=== PATIENT | male | born 1945 | race Caucasian/White ===

== ENCOUNTER 2018-10-26 07:08 | Inpatient (IN) ==
[2018-10-26 08:52] LABS: BASO# 0.06 X1000 (0.0-0.2); BASO% 0.9 % (0.0-0.8); EOS# 0.22 X1000 (0.0-0.7); EOS% 3.4 % (0.0-10.0); HEMATOCRIT 45.5 % (42.0-52.0); HEMOGLOBIN 14.5 g/dL (14.0-18.0); LYMPH# 1.41 X1000 (1.2-3.4); LYMPH% 21.9 % (20.5-51.1); MCH 26.6 PG (27-31); MCHC 31.9 g/dL (33-37); MCV 83.5 FL (81-99); MONO# 0.67 X1000 (0.11-0.59); MONO% 10.4 % (1.7-9.3); MPV 9.8 FL (7.4-10.4); NEUT# 4.08 X1000 (1.4-6.5); NEUT% 63.4 % (42.2-75.2); PLT 261 X1000 (130-400); RBC 5.45 XMIL (4.7-6.1); RDW 15.9 % (11.5-14.5); WBC 6.44 X1000 (4.8-10.8)
[2018-10-26 09:00] LABS: INR 1.01; PROTIME 14.2 Seconds (11.0-16.0)
[2018-10-26 09:13] LABS: AGAP 10; ALB/GLOB RATIO 1.4; ALBUMIN 4.2 g/dL (3.5-5.0); ALKALINE PHOSPHATASE 67 U/L (32-122); BUN 22 mg/dL (8-22); CALCIUM 9.2 mg/dL (8.8-10.2); CHLORIDE 106 mmol/L (98-107); COSMO 287; ESTIMATED GFR > 60; GLUCOSE 102 mg/dL (70-104); GOT 23 U/L (10-34); GPT 56 U/L (10-44); POTASSIUM 4.6 mmol/L (3.5-5.1); SODIUM 142 mmol/L (136-145); TCO2 26 mmol/L (25-35); TOTAL BILIRUBIN 0.84 mg/dL (0.20-1.00); TOTAL PROTEIN 7.2 g/dL (6.3-8.3)
--- NOTE | 2018-10-26 09:40 | PROVIDER DOCUMENTATION ---
HPI-General Adult - General Chief Complaint: Rectal Bleeding Stated Complaint: RECTAL BLEEDING Time Seen by Provider: 10/26/18 08:09 Source: patient, family Allergies/Adverse Reactions: Patient Allergies Allergy/AdvReac Type Severity Reaction Status Date / Time amlodipine Allergy HIVES Verified 07/16/14 19:35 benazepril Allergy HIVES Verified 07/16/14 19:35 finasteride Allergy HIVES Verified 07/16/14 19:35 meloxicam Allergy HIVES Verified 07/16/14 19:54 sulfamethoxazole Allergy HIVES Verified 07/16/14 19:35 [From Bactrim] tamsulosin HCl * Allergy HIVES Verified 07/16/14 19:35 [From Flomax] trimethoprim [From Bactrim] Allergy HIVES Verified 07/16/14 19:35 Home Medications: Home Medication List Medication Instructions Recorded Confirmed Last Taken Type Aspirin [Villanueva Aspirin EC] 81 mg PO DAILY 07/16/14 03/07/17 07/16/14 08:00 History 1po Ezetimibe [Zetia] 10 mg PO DAILY 07/16/14 03/07/17 07/16/14 08:00 History 1po Levothyroxine [Synthroid] 50 microgm PO DAILY@0700 07/16/14 03/07/17 07/16/14 08 :00 History 1po Magnesium Oxide [Magnesium] 400 mg PO DAILY 07/16/14 03/07/17 07/16/14 08:00 History 1po Multivitamins/Minerals [Centrum 1 each PO DAILY 07/16/14 03/07/17 07/16/14 08: 00 History Silver] 1po Selenium 200 mg PO DAILY 07/16/14 03/07/17 07/16/14 08:00 History 1po Gabapentin [Neurontin] 600 mg PO QHS 07/17/14 03/07/17 07/15/14 21:00 History Abatacept/Maltose [Orencia 250 mg 1,000 mg IV DIRECTED 03/07/17 03/07/17 Unknown History Vial] Bisoprolol Fumarate 10 mg PO DAILY 03/07/17 03/07/17 Unknown History Calcium Citrate/Vitamin D3 1 each PO DAILY 03/07/17 03/07/17 Unknown History [Calcitrate + Vit D Caplet] Cephalexin [Keflex] 500 mg PO BID #14 capsule 03/07/17 Unknown Rx Diosmin Complex No.1 [Vasculera] 630 mg PO DAILY 03/07/17 03/07/17 Unknown History Fish Oil/Dha/Epa [Fish Oil 1,200 1 each PO DAILY 03/07/17 03/07/17 Unknown History mg Fish Oil] Folic Acid 1 mg PO DAILY 03/07/17 03/07/17 Unknown History Furosemide [Lasix] 20 mg PO DAILY 03/07/17 03/07/17 Unknown History Glucosa Sethi 2Kcl/Chondroitin Sethi 1 each PO DAILY 03/07/17 03/07/17 Unknown History [Glucosamine & Chondroitin Cap] Hydralazine [Apresoline] 100 mg PO TID 03/07/17 03/07/17 Unknown History Hydrocodone/APAP 7.5 mg/325 mg 1 each PO Q6H PRN PRN #12 tablet 03/07/17 Unknown Rx [Powell-7.5] Hydroxychloroquine [Plaquenil] 400 mg PO DAILY 03/07/17 03/07/17 Unknown History Immune Globulin,Gamma 5% [Octagam 30 gm IV DIRECTED 03/07/17 03/07/17 Unknown History 5%] Leflunomide 20 mg PO DAILY 03/07/17 03/07/17 Unknown History Losartan [Cozaar] 100 mg PO DAILY 03/07/17 03/07/17 Unknown History - History of Present Illness -Gen Adult Nature of Presenting Problems: Continues to have rectal bleeding for which he was seen yesterday here. Says his abdomen is bigger around than it was yesterday, mild LLQ and Left sided pain /ache, no fever, no other pain, wearing pads and bleeding has not stopped. No PSH of abdomen, PMH afib on anti coags for a few years, never had GI bleeding or GI issues, no hard bowel movements in the past few days or now. Location of Pain/Injury: reports: other (LLQ left sided) Pain Radiation: reports: no radiation Quality of Pain: reports: aching Severity: reports: moderate (bleeding) Onset/Duration: reports: 2 days ago Context/Activities at Onset: reports: none Modifying Factors: improves with: nothing Associated Symptoms: reports: denies symptoms Similar Symptoms Previously?: Yes Recently seen or treated by another doctor?: Yes Review of Systems - Adult - REVIEW OF SYSTEMS - ADULT Constitutional: reports: no symptoms reported Eyes: reports: no symptoms reported Ears, Nose, Mouth & Throat: reports: no symptoms reported Cardiovascular: reports: no symptoms reported Respiratory: reports: no symptoms reported Gastrointestinal: reports: see HPI Genitourinary: reports: no symptoms reported Musculoskeletal: reports: no symptoms reported Integumentary: reports: no symptoms reported Neurological: reports: no symptoms reported Psychiatric: reports: no symptoms reported Endocrine: reports: no symptoms reported Hematologic/Lymphatic: reports: no symptoms reported Allergic/Immunologic: reports: no symptoms reported All Other Systems: Reviewed and Negative Past History - Adult - PAST MEDICAL HISTORY-ADULT Review of Records: reports: Nursing Assessment Review, Medications Reviewed Major Childhood Illnesses: reports: denies history Cardiovascular: reports: CAD, CHF, HTN, hyperlipidemia Respiratory: reports: COPD Gastrointestinal: reports: denies history Obstetrical/Gynecological: reports: denies history Genitourinary: reports: denies history Musculoskeletal: reports: denies history Neurological: reports: denies history Endocrine/Immune: reports: thyroid disorder Other Conditions: reports: denies history - PRIOR SURGERIES/PROCEDURES Surgical/Procedure History: reports: back/neck - IMMUNIZATION STATUS Childhood Immunizations: See Nurse Assessment Flu Vaccine: See Nurse Assessment - FAMILY HISTORY Family History: reviewed, not pertinent Physical Exam-General - PHYSICAL EXAM-ADULT Initial Vital Signs Reviewed: Yes - CONSTITUTIONAL General Appearance: appears well, alert, no apparent distress - EYES Eyes: pink conjunctivae - HEAD, EARS, NOSE, MOUTH & THROAT HENMT: moist mucous membranes - RESPIRATORY Respiratory: lungs clear, normal breath sounds, no pleuratic chest pain, no respiratory distress - CARDIOVASCULAR Cardiovascular: normal peripheral pulses, regular rate, rhythm - GASTROINTESTINAL (ABDOMEN) Abdominal Exam: soft, other (diminished bowel sounds diffusely, mild LLQ Left sided tenderness without rebound or guarding, rectal exam elia blood, tenderness posterior rim of rectum without mass) - MUSCULOSKELETAL Extremity: normal range of motion, normal gait - SKIN Integumentary: normal color, normal turgor, warm/dry - NEUROLOGIC Neurologic: grossly normal, no motor/sensory deficits Progress - PLAN OF CARE/RESULTS Progress/Plan/Lab Results: Vital Signs - 8 hr 10/26/18 07:15 Temperature 97.2 F L Pulse Rate 71 Respiratory Rate 20 Blood Pressure 135/88 O2 Sat by Pulse Oximetry 97 Laboratory Results - last 24 hr 10/26/18 10/26/18 10/26/18 08:30 08:30 08:30 WBC 6.44 RBC 5.45 Hgb 14.5 Hct 45.5 MCV 83.5 MCH 26.6 L MCHC 31.9 L RDW Std Deviation 15.9 H Plt Count 261 MPV 9.8 Immature Gran % (Auto) 0.0 Neut % (Auto) 63.4 Lymph % (Auto) 21.9 Gulf % (Auto) 10.4 H Eos % (Auto) 3.4 Baso % (Auto) 0.9 H Immature Gran # (Auto) 0.00 Neut # (Auto) 4.08 Lymph # (Auto) 1.41 Gulf # (Auto) 0.67 H Eos # (Auto) 0.22 Baso # (Auto) 0.06 PT 14.2 INR 1.01 Sodium 142 Potassium 4.6 Chloride 106 Carbon Dioxide 26 Anion Gap 10 BUN 22 Creatinine 1.0 Estimated GFR/1.73 m2 > 60 BUN/Creatinine Ratio 22 Glucose 102 Calculated Osmolality 287 Calcium 9.2 Total Bilirubin 0.84 AST 23 ALT 56 H Alkaline Phosphatase 67 Total Protein 7.2 Albumin 4.2 Globulin 3.0 Albumin/Globulin Ratio 1.4 Orders Category Date Time Status Saline Loc NOW Care 10/26/18 08:[address] ABD/PELVIS W/IV CONT ONLY [CT] Stat Exams 10/26/18 09:34 Ordered CBC WITH ELECTRONIC DIFF [HEME] Stat Lab 10/26/18 08:30 Completed CMP [COMPREHENSIVE METABOLIC PANEL] [CHEM] Stat Lab 10/26/18 08:30 Completed PT [PROTIME WITH INR] [COAG] Stat Lab 10/26/18 08:30 Completed URINALYSIS W/POSS RFLX CULT [URINALYSIS] Stat Lab 10/26/18 09:34 Uncollected nl CBC and creatinine, getting CT with IV dye, will call surgery and d/ post CT , surgery is Fye today 1233 d/w Fye, rec admit to hospitalist and GI involvement, call out to hospitalist 1242 d/w ILEANA Pete exam results d/w Fye, admit to [facility] Result Diagrams: 10/26/18 08:30 10/26/18 08:30 Departure - Departure Date of Disposition Decision: 10/26/18 Time of Disposition Decision: 12:42 DIAGNOSIS: Rectal bleeding, GI bleed Disposition: ADMITTED INPATIENT 09 Certified Medical Emergency: Emergent Condition: Good Additional Freetext Instructions: Admit to [facility] 1242 Referrals and Follow-Ups: Belkis Gonzalez MD [Primary Care Provider] - - Critical Care Note This patient required my direct & personal management of CC.: No Attestation - Physician/ LEONCIO Attestation The physician spent face to face time with patient:: Yes Advanced Practice Provider documentation review:: Supervising physician onsite and consulted in the evaluation and care of this patient. The physician did have a face to face encounter with the patient.
[2018-10-26 09:56] LABS: BILIRUBIN URINE NEGATIVE (NEGATIVE); BLOOD URINE NEGATIVE (NEGATIVE); COLOR YELLOW; GLUCOSE URINE NEGATIVE (NEGATIVE); KETONE URINE NEGATIVE (NEGATIVE); LEUKOCYTES URINE NEGATIVE (NEGATIVE); NITRITE URINE NEGATIVE (NEGATIVE); PROTEIN URINE NEGATIVE (NEGATIVE); TURBIDITY URINE CLEAR (CLEAR); UR EPITHELIAL CELLS <10 /HPF (<10); URINE BACTERIA NEGATIVE /HPF; URINE RBC <10 /HPF (<10); URINE SOURCE CLEAN CATCH; URINE WBC <10 /HPF (<10); UROBILINOGEN URINE NORMAL (NORMAL)
--- NOTE | 2018-10-26 11:31 | Diag Imaging Result Doc PS360 ---
EXAM: CT ABD/PELVIS W/IV CONT ONLY HISTORY: colitis TECHNIQUE: CT abdomen and pelvis with intravenous contrast COMPARISON: None. FINDINGS: There is a 2.2 cm stone within the gallbladder. No inflammation about the gallbladder. There is fatty infiltration of the liver. Normal spleen, pancreas, and left adrenal gland. There is a 15 mm right adrenal nodule. There are multiple bilateral renal cysts. The largest arises from the lower pole of the left kidney measuring 5.8 cm. No hydronephrosis. No aortic aneurysm. Moderate atherosclerosis. Normal appendix. No abscess. No bowel obstruction. No inflammation about the colon. There are scattered diverticula. The urinary bladder is distended and is normal. The prostate is enlarged measuring just under 7 cm in maximum diameter. There has been prior surgery to the lower lumbar spine and there are degenerative changes throughout the lumbar spine IMPRESSION: 1.Cholelithiasis 2.Fatty infiltration of the liver 3.Small right adrenal nodule 4.Scattered renal cysts 5.Diverticulosis 6.Enlarged prostate This exam was performed using automated exposure control, adjustment of mA or kV according to patient size, and/or use of iterative reconstruction technique. Electronically signed by Esequiel Garcia 10/26/2018 11:29 AM
[2018-10-26] MEDS ORDERED: NS 250 ML IV ONE (12:58)
[2018-10-26] MEDS ORDERED: TYLENOL PO PRN (14:00)
[2018-10-26] MEDS: NS 1,000 ML IV SCH (14:00)
[2018-10-26] MEDS ORDERED: ZOFRAN IV PRN (14:00)
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
[2018-10-26] MEDS: TOPROL XL PO SCH (17:19)
[2018-10-26] MEDS: APRESOLINE PO SCH (17:19)
[2018-10-26] MEDS: FOLIC ACID PO SCH (17:20)
[2018-10-26] MEDS: CARDIZEM CD PO SCH (17:21)
[2018-10-26] MEDS: PATIENT'S OWN MED PO SCH (17:23)
[2018-10-26] MEDS: NEURONTIN PO SCH (20:06)
[2018-10-26] MEDS: PLAQUENIL PO SCH (20:06)
[2018-10-27] MEDS: SYNTHROID PO SCH (06:19)
[2018-10-27 08:06] LABS: INR 1.01; PROTIME 14.1 Seconds (11.0-16.0)
[2018-10-27 08:07] LABS: PTT 28.4 Seconds (22.3-41.8)
--- NOTE | 2018-10-27 08:10 | EKG Report ---
Test Performed on : 10/27/2018 07:50:39 AM Test Reason : afib Blood Pressure : / mmHG Vent. Rate : 078 BPM Atrial Rate : 326 BPM P-R Int : 000 ms QRS Dur : 090 ms QT Int : 382 ms P-R-T Axes : 000 -32 017 degrees QTc Int : 435 ms Atrial fibrillation. Left axis deviation Nonspecific ST abnormality Abnormal ECG When compared with ECG of 26-OCT-2018 14:26, (Unconfirmed) No significant change was found Confirmed by Kasia MEHTA, Everardo Mathis ([id number]) on 10/27/2018 8:47:20 AM
[2018-10-27 08:16] LABS: AGAP 12; ALB/GLOB RATIO 1.3; ALBUMIN 3.8 g/dL (3.5-5.0); ALKALINE PHOSPHATASE 69 U/L (32-122); BUN 19 mg/dL (8-22); CALCIUM 9.1 mg/dL (8.8-10.2); CHLORIDE 108 mmol/L (98-107); COSMO 286; CREATININE 0.9 mg/dL (0.7-1.2); ESTIMATED GFR > 60; GLUCOSE 84 mg/dL (70-104); GOT 21 U/L (10-34); GPT 48 U/L (10-44); MAGNESIUM 2.1 mg/dL (1.5-2.7); POTASSIUM 4.5 mmol/L (3.5-5.1); SODIUM 143 mmol/L (136-145); TCO2 23 mmol/L (25-35); TOTAL BILIRUBIN 1.51 mg/dL (0.20-1.00); TOTAL PROTEIN 6.7 g/dL (6.3-8.3)
--- NOTE | 2018-10-27 08:50 | EKG Report ---
Test Performed on : 10/26/2018 2:26:54 PM Test Reason : IRREGULAR Blood Pressure : / mmHG Vent. Rate : 094 BPM Atrial Rate : 081 BPM P-R Int : 000 ms QRS Dur : 090 ms QT Int : 358 ms P-R-T Axes : 000 -27 047 degrees QTc Int : 447 ms Atrial fibrillation. Nonspecific ST abnormality Abnormal ECG When compared with ECG of 17-JUL-2014 06:09, Atrial fibrillation. has replaced Sinus rhythm. Unconfirmed Result
[2018-10-27 08:51] LABS: BASO# 0.04 X1000 (0.0-0.2); BASO% 0.6 % (0.0-0.8); EOS# 0.16 X1000 (0.0-0.7); EOS% 2.5 % (0.0-10.0); HEMATOCRIT 45.8 % (42.0-52.0); HEMOGLOBIN 14.6 g/dL (14.0-18.0); LYMPH# 1.55 X1000 (1.2-3.4); LYMPH% 23.9 % (20.5-51.1); MCH 26.8 PG (27-31); MCHC 31.9 g/dL (33-37); MONO# 0.59 X1000 (0.11-0.59); MONO% 9.1 % (1.7-9.3); MPV 9.8 FL (7.4-10.4); NEUT# 4.14 X1000 (1.4-6.5); NEUT% 63.9 % (42.2-75.2); PLT 238 X1000 (130-400); RBC 5.45 XMIL (4.7-6.1); RDW 16.2 % (11.5-14.5); WBC 6.48 X1000 (4.8-10.8)
[2018-10-27] MEDS: APRESOLINE PO SCH ×2 (08:57→15:56)
[2018-10-27] MEDS: CARDIZEM CD PO SCH (08:57)
[2018-10-27] MEDS: PLAQUENIL PO SCH ×2 (08:57→22:12)
[2018-10-27] MEDS: NEURONTIN PO SCH ×2 (08:57→22:13)
[2018-10-27] MEDS: LASIX PO SCH (08:57)
[2018-10-27] MEDS: CENTRUM SILVER PO SCH (08:57)
[2018-10-27] MEDS: COZAAR PO SCH (08:58)
[2018-10-27] MEDS: TOPROL XL PO SCH (08:58)
[2018-10-27] MEDS: ZETIA PO SCH (08:58)
[2018-10-27] MEDS: MAG-OX PO SCH (08:58)
[2018-10-27] MEDS: FOLIC ACID PO SCH (08:59)
[2018-10-27] MEDS: FISH OIL CONCENTRATE PO SCH (08:59)
[2018-10-27] MEDS: NS 1,000 ML IV SCH (11:09)
[2018-10-27] MEDS: CITRACAL + D PO SCH (12:06)
[2018-10-27] MEDS: PATIENT'S OWN MED PO SCH ×3 (12:07→12:08)
[2018-10-27] MEDS: ARAVA PO SCH (12:07)
--- NOTE | 2018-10-27 15:33 | CONSULTATION ---
DATE OF CONSULTATION: 10/27/2018 REASON FOR CONSULTATION: Rectal bleeding. HISTORY OF PRESENT ILLNESS: This is a 72-year-old white male who we have seen in the office before. His last colonoscopy was in December 2016. At that time he had findings of external grade 2 hemorrhoids and diverticulosis. In 2013 he had polyps in the ascending colon and rectosigmoid colon with diverticulosis. Patient reports recently being started on Eliquis in June 2018 for atrial fibrillation. He had been also started on amiodarone, had a stress test and also had cardioversion that did not work. He has been following with Dr. Daily, his contact clerk. He saw him last week. The patient states onset of symptoms happened on Friday evening when he had episode of bright red rectal bleeding with no reported bowel movement at that time. He came in to the emergency room and was instructed to stop Eliquis. He was discharged. He had subsequent bleeding Friday morning and came back in to the hospital for further evaluation and was admitted. Patient states his last bleeding was Friday morning. He has not had a bowel movement today. Patient states usually he denies constipation and has not had any recent problems with bleeding or any recent problems with hemorrhoids. He does usually have a bowel movement daily and does not take laxatives. His last Eliquis dose was Friday night. Patient again was started on Eliquis 5 mg twice daily in June for atrial fibrillation. The patient denies any dizziness or lightheadedness. No reported fever. No nausea or vomiting. No hematemesis. He had reported some mild abdominal pain on admission and since admission his hemoglobin and hematocrit have been stable. On admission hemoglobin and hematocrit was 14.5 and 45.5, today hemoglobin and hematocrit is 14.6 and 45.8. PAST MEDICAL HISTORY: 1. Coronary artery disease. 2. Congestive heart failure. 3. COPD. 4. Hyperlipidemia. 5. Hypertension. 6. BPH. 7. Degenerative joint disease. 8. Atrial fibrillation on Eliquis. 9. Lumbar stenosis. 10. History of colon polyps and hemorrhoids with last colonoscopy in 2016. 11. Rheumatoid arthritis. 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 PAST SURGICAL HISTORY: Last colonoscopy December 2016 that showed external hemorrhoids and diverticulosis, history of bilateral wrist carpal tunnel surgery, lower back surgery x4, lymph nodes in the neck removed, neck surgery x4, right rotator cuff surgery and left rotator cuff surgery, right knee surgery, lower leg laser ablation, bilateral cataract surgery, recent cardiovascular cardioversion for atrial fibrillation in July 2018. ALLERGIES: Amlodipine causing hives, benazepril hives, finasteride hives, meloxicam hives, Bactrim hives, Flomax hives. HOME MEDICATIONS: Orencia 1000 mg IV as directed, Eliquis 1 tablet twice daily, vitamin D and calcium daily, Cardizem 240 mg daily, Vascularis 630 mg daily, Zetia 10 mg daily, fish oil 1 tablet daily, folic acid 1 daily, Lasix 20 mg daily, Neurontin 600 mg every night, glucosamine chondroitin daily, Apresoline 100 mg 3 times a day, Ashkum 7.5/325 mg 1 every 6 hours as needed, Plaquenil 400 mg daily, immunoglobulin as directed, leflunomide 20 mg daily, Synthroid 50 mcg daily, Cozaar 100 mg daily, magnesium 400 mg daily, Toprol-XL 200 mg daily, Centrum Silver 1 daily, selenium 200 mg daily. SOCIAL HISTORY: Quit smoking in 1993, denies alcohol use. 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 FAMILY HISTORY: Mother and father had diabetes. Father had congestive heart failure and hypertension. REVIEW OF SYSTEMS: Per history of present illness. PHYSICAL EXAMINATION: Vital Signs: Temperature 98 degrees, pulse 85, respirations 17, blood pressure 116/77. General: Patient is awake, alert, no acute distress. HEENT: Normocephalic, atraumatic. Pupils equal, round, reactive to light. Sclerae nonicteric. Cardiovascular: Irregular rate and rhythm. Pulmonary: Lung sounds essentially clear. Abdomen: Soft. Some mild tenderness in the lower abdomen. Otherwise positive bowel sounds. Extremities: No lower extremity edema noted. Neurologic: Cranial nerves 2-12 grossly intact. Patient is awake, alert, oriented person, place and time. LABORATORY: Hematology. WBC 6.48, hemoglobin 14.6, hematocrit 45.8, MCV 84.0, platelets 238,000. Coagulation, pro time 14.1, INR 1.01, PTT 28.4. Chemistry, sodium 143, potassium 4.5, chloride 108, CO2 of 23, BUN 19, creatinine 0.9, glucose 84, total bilirubin 1.51, AST 21, ALT 48, alkaline phosphatase 69. Urinalysis negative. IMAGING: Abdominal pelvis CT scan showed cholelithiasis, fatty liver, small right adrenal nodule, scattered renal cysts, diverticulosis and enlarged prostate. ASSESSMENT AND PLAN: 1. Rectal bleeding. 2. Anticoagulation, on Eliquis for atrial fibrillation. 3. History of hemorrhoids and diverticulosis, history of colon polyp in 2014 but no noted polyps in 2017. 4. Other medical problems including congestive heart failure, atrial fibrillation, rheumatoid arthritis, IgG deficiency, hypertension, hyperlipidemia, benign prostatic hypertrophy. 5. Eliquis has been held and patient has had no further rectal bleeding today, bleeding most likely hemorrhoidal. We will continue to monitor further. He had a colonoscopy in 2017 that showed external hemorrhoids and diverticulosis. Will allow full liquid diet today and further plans to be made according to his progress. Continue to monitor hemoglobin and hematocrit. Monitor for further active bleeding. Transfuse packed red blood cells if needed. We will hold off proceeding with any endoscopy procedure at present time. He had just had a colonoscopy in 2017. Further plans will be made according to his progress. I have discussed this case with Dr. Warren. Thank you for this consultation. Dictated by HARJEET Irvin for Natanael Warren MD cc: HARJEET Monroy MD
--- NOTE | 2018-10-27 16:48 | PROGRESS NOTE ---
DATE: 10/27/2018 SUBJECTIVE: Patient reports no more episodes of rectal bleeding, patient denies any dizziness, headache, nausea, vomiting. OBJECTIVE: Vital Signs: Temperature 98,8 heart rate 84, respiratory rate 17 , blood pressure 116/77, O2 saturation 96% on room air. General: This is a 72-year-old male lying in bed in no acute distress. HEENT: Head is normocephalic, atraumatic. Neck: No JVD noted. No carotid bruits, no lymphadenopathy, no thyromegaly. Cardiovascular: S1, S2 heard, irregularly irregular heart rhythm. No murmurs, gallops or rubs noted. Respiratory: Clear bilaterally to auscultation. No work of breathing or using accessory muscles. Abdomen: Soft , nontender to palpation. Bowel sounds present. No organomegaly. Extremities: No clubbing, cyanosis, or edema. Peripheral pulses present in both legs. Neurologic: Patient alert, oriented x3, moves 4 extremities. LABORATORY DATA: Hemoglobin 14.6, hematocrit 45.8, normal BMP. ASSESSMENT AND PLAN: 1. Rectal bleeding secondary to internal hemorrhoids. Patient has been on Eliquis for atrial fibrillation and reason why he was admitted to the hospital was because of rectal bleeding. That has stopped since admission. We just have stopped Eliquis we did not do any blood transfusion and hemoglobin stable so far. At this point we are waiting for recommendations from GI. At this point will continue to check CBC daily. 2. Atrial fibrillation rate is well controlled. Patient is off of Eliquis by now because of this rectal bleeding, will continue with Toprol. 3. Hypertension, blood pressure is under control, will continue with same management. 4. Rheumatoid arthritis, will continue with home medication. 5. Hyperlipidemia, will continue with Zetia. 6. Benign prostatic hypertrophy. As per patient, patient not any medication. 7. Deep vein thrombosis prophylaxis on sequential compression devices. 8. Disposition. Will follow leads from GI, will continue to monitor this patient closely. cc: Stephen Noonan MD [facility]
[2018-10-27] MEDS: PROTONIX IV SCH (18:16)
[2018-10-27] MEDS: SODIUM CHLORIDE 0.9% INJ SCH (18:16)
[2018-10-28] MEDS: APRESOLINE PO SCH ×2 (01:07→08:34)
[2018-10-28] MEDS: PROTONIX IV SCH (06:59)
[2018-10-28] MEDS: SODIUM CHLORIDE 0.9% INJ SCH (06:59)
[2018-10-28] MEDS: SYNTHROID PO SCH (06:59)
[2018-10-28] MEDS: NS 1,000 ML IV SCH (08:32)
[2018-10-28] MEDS: FISH OIL CONCENTRATE PO SCH (08:33)
[2018-10-28] MEDS: CARDIZEM CD PO SCH (08:33)
[2018-10-28] MEDS: COZAAR PO SCH (08:33)
[2018-10-28] MEDS: NEURONTIN PO SCH (08:34)
[2018-10-28] MEDS: MAG-OX PO SCH (08:34)
[2018-10-28] MEDS: PLAQUENIL PO SCH (08:34)
[2018-10-28] MEDS: FOLIC ACID PO SCH (08:34)
[2018-10-28] MEDS: CENTRUM SILVER PO SCH (08:34)
[2018-10-28] MEDS: ZETIA PO SCH (08:34)
[2018-10-28] MEDS: LASIX PO SCH (08:35)
[2018-10-28] MEDS: TOPROL XL PO SCH (08:36)
[2018-10-28] MEDS: CITRACAL + D PO SCH (08:37)
[2018-10-28] MEDS: ARAVA PO SCH (08:40)
[2018-10-28] MEDS: PATIENT'S OWN MED PO SCH ×3 (11:04→11:05)
[2018-10-28 11:05] LABS: BASO# 0.04 X1000 (0.0-0.2); BASO% 0.6 % (0.0-0.8); EOS# 0.18 X1000 (0.0-0.7); EOS% 2.8 % (0.0-10.0); HEMATOCRIT 46.2 % (42.0-52.0); HEMOGLOBIN 14.9 g/dL (14.0-18.0); LYMPH# 1.43 X1000 (1.2-3.4); LYMPH% 22.5 % (20.5-51.1); MCHC 32.3 g/dL (33-37); MCV 83.8 FL (81-99); MONO# 0.55 X1000 (0.11-0.59); MONO% 8.7 % (1.7-9.3); MPV 9.6 FL (7.4-10.4); NEUT# 4.15 X1000 (1.4-6.5); NEUT% 65.4 % (42.2-75.2); PLT 247 X1000 (130-400); RBC 5.51 XMIL (4.7-6.1); WBC 6.35 X1000 (4.8-10.8)
[2018-10-28 12:11] VITALS: BP 120/78
--- NOTE | 2018-10-28 14:37 | PROGRESS NOTE ---
DATE: 10/28/2018 SUBJECTIVE: Patient is sitting up in a chair, in no acute distress. He has had no further rectal bleeding. Repeat hemoglobin and hematocrit today showed hemoglobin 14.9, hematocrit 46.2. He is tolerating a full liquid diet. No reported dizziness, lightheadedness, shortness of breath, or chest pain. OBJECTIVE: Vital Signs: Temperature 97.5 degrees, pulse 58, respirations 20, blood pressure 120/78. General: The patient is awake and alert. No acute distress. He is sitting up in a chair. Laboratory: Hematology: WBC 6.35, hemoglobin 14.9, hematocrit 46.2, MCV 83.8, platelets 247,000. ASSESSMENT AND PLAN: 1. Rectal bleeding, seems to have resolved. 2. Atrial fibrillation. On Eliquis which had been on hold. 3. Last colonoscopy in 2017 showed hemorrhoids and diverticulosis. 4. Patient seems to have had resolution of his rectal bleeding. Recommend to hold Eliquis for 1 week and restart thereafter if no further bleeding. As far as gastroenterology is concerned, he can be discharged home. Recommend he follow up with us as an outpatient. His last colonoscopy was in 2017 that did not show evidence of colon polyps. We will continue to follow and further plans will be made as needed. I have discussed this case with Dr. Warren. Dictated by HARJEET Irvin for Natanael Warren MD cc: HARJEET Monroy MD
--- NOTE | 2018-10-28 20:31 | DISCHARGE SUMMARY ---
ADMISSION DATE: 10/26/2018 DISCHARGE DATE: 10/28/2018 CONSULTATIONS: Dr. Warren with Gastroenterology. PERTINENT PROCEDURES: Abdomen and pelvis CT: infiltration of the liver. Small right renal nodule, scattered renal cysts, diverticulosis, enlarged prostate. DISCHARGE DIAGNOSES: 1. Rectal bleeding secondary to internal hemorrhoids. The patient has been on Eliquis for atrial fibrillation. His rectal bleeding has stopped since admission. He was also taken off his Eliquis. He did not require any blood transfusion. His hemoglobin and hematocrit has remained stable. He has been seen by GI who recommends holding off on his Eliquis until Friday, and they do not wish to proceed with any endoscopy at this time as he just had a colonoscopy in 2017. 2. Atrial fibrillation, rate controlled. Again, patient is off Eliquis until Friday. Continue Toprol. 3. Hypertension. Blood pressure is controlled. 4. Rheumatoid arthritis. Continue home medications. 5. Hyperlipidemia. HOSPITAL COURSE: Briefly, Mr. Morgan is a 72-year-old male who is a patient of Dr. Warren. His last colonoscopy was in December 2016. Coronary artery disease, congestive heart failure, COPD, hyperlipidemia, hypertension, BPH, degenerative joint disease, atrial fibrillation on Eliquis, lumbar stenosis, history of colon polyps and hemorrhoids. Last colonoscopy again was in 2016, rheumatoid arthritis, and IgG deficiency, he had onset of rectal bleeding Friday evening with bright red rectal bleeding with no reported bowel movement at home. He came to the ED where he was instructed to stop his Eliquis. He was discharged. He had subsequent bleeding Friday morning and came back to the ED for evaluation. He was admitted with a GI consult. Since his admission his Eliquis was stopped. He has not had any more bleeding episodes. His hemoglobin and hematocrit has remained stable. He is hemodynamically stable. He has been evaluated by GI, who recommends him holding off on his Eliquis until Friday. They do not wish to proceed with any procedures at this time and he is being discharged back home. VITAL SIGNS: Temperature is 97.5, heart rate 58, respirations 20, blood pressure 120/70. O2 is 94% on room air. DISCHARGED DIET: Full liquid. Advance as tolerated. HOME MEDICATIONS: 1. Neurontin 600 mg p.o. at bedtime. 2. Orencia 250 mg vial 1000 mg as directed. 3. Eliquis 5 mg tablet p.o. daily. The patient will not start this back until Friday. 4. Caltrate vitamin D 1 each p.o. daily. 5. Cardizem CD 240 mg p.o. daily. 6. Vasculera 630 mg p.o. daily. 7. Zetia 10 mg p.o. daily. 8. Fish oil 1200 mg 1 each p.o. daily. 9. Folic acid 1 mg p.o. daily. 10. Lasix 20 mg p.o. daily. 11. Glucosamine and Chondroitin capsule 1 each p.o. daily. 12. Apresoline 100 mg p.o. t.i.d. 13. Plaquenil 4 mg p.o. daily. 14. Octagam 30 g IV as directed. 15. Leflunomide daily 20 mg p.o. daily. 16. Synthroid 50 mcg p.o. daily. 17. Cozaar 100 mg p.o. daily. 18. Magnesium 400 mg p.o. daily. 19. Toprol-XL 200 mg p.o. daily. 20. Centrum Silver 1 each p.o. daily. 21. Selenium 200 mg p.o. daily. 22. [place] 7.5 one each p.o. q.6 hours p.r.n. FOLLOWUP: Mr. Morgan is being discharged back home with self care. He is to hold off on his Eliquis until Friday. 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 Belkis Gonzalez. He can return to the ED or call 911 for any worsening of symptoms. Dictated by HARJEET Davenport for Stephen Noonan MD Addendum: Patient seen and examined by myself. Agree with HARJEET note. It reflects my assessment and plan. Patient is being discharged in stable condition and will be seen by PCP in a week. cc: MD Natanael Hansen MD Marlin D. Gill, MD MTDD
== END 2018-10-28 14:19 | disposition home or self-care (01) | DRG 394 ==
LOC: ED 07:08 → EDIPHOLD 14:18 → SUATTDRO 14:18 → 3N 16:19
PROVIDERS: ATTEND Internal Medicine
CPT/HCPCS: 74177; 80053; 81001; 82270; 83735; 84443; 85025; 85610; 85730; 86850; 86900; 86901; 93005; 93010; 96360; 99283; 99285; A9270; C9113; J7030; J7050; Q9967; S0164

== ENCOUNTER 2019-02-06 12:33 | Inpatient (IN) ==
[2019-02-06] MEDS ORDERED: ASPIRIN PO ONE (12:36)
--- NOTE | 2019-02-06 12:44 | EKG Report ---
Test Performed on : 02/06/2019 12:42:59 PM Test Reason : cp Blood Pressure : / mmHG Vent. Rate : 112 BPM Atrial Rate : 065 BPM P-R Int : 000 ms QRS Dur : 088 ms QT Int : 342 ms P-R-T Axes : 000 -08 032 degrees QTc Int : 466 ms Atrial fibrillation. with rapid ventricular response. with premature ventricular or aberrantly conduc angelica complexes. Nonspecific ST and T wave abnormality Abnormal ECG When compared with ECG of 27-OCT-2018 07:50, Nonspecific T wave abnormality, worse in Inferior leads Nonspecific T wave abnormality now evident in Lateral leads Unconfirmed Result
--- NOTE | 2019-02-06 12:51 | PROVIDER DOCUMENTATION ---
HPI-Chest Pain - General Stated Complaint: CHEST PAINS/LIGHTHEADED Time Seen by Provider: 02/06/19 12:40 Source: patient Allergies/Adverse Reactions: Patient Allergies Allergy/AdvReac Type Severity Reaction Status Date / Time amlodipine Allergy HIVES Verified 07/16/14 19:35 benazepril Allergy HIVES Verified 07/16/14 19:35 finasteride Allergy HIVES Verified 07/16/14 19:35 meloxicam Allergy HIVES Verified 07/16/14 19:54 sulfamethoxazole Allergy HIVES Verified 07/16/14 19:35 [From Bactrim] tamsulosin HCl * Allergy HIVES Verified 07/16/14 19:35 [From Flomax] trimethoprim [From Bactrim] Allergy HIVES Verified 07/16/14 19:35 Home Medications: Home Medication List Medication Instructions Recorded Confirmed Last Taken Type Ezetimibe [Zetia] 10 mg PO DAILY 07/16/14 11/02/18 11/02/18 05:00 History Levothyroxine [Synthroid] 50 microgm PO DAILY@0700 07/16/14 11/02/18 11/01/18 07:00 History Magnesium Oxide [Magnesium] 400 mg PO DAILY 07/16/14 11/02/18 11/01/18 07:00 History Multivitamins/Minerals [Centrum 1 each PO DAILY 07/16/14 11/02/18 11/01/18 07:00 History Silver] Selenium 200 mg PO DAILY 07/16/14 11/02/18 11/01/18 07:00 History Gabapentin [Neurontin] 600 mg PO QHS 07/17/14 11/02/18 11/01/18 16:30 History Abatacept/Maltose [Orencia 250 mg 1,000 mg IV DIRECTED 03/07/17 11/02/18 10/12/18 10:00 History Vial] Calcium Citrate/Vitamin D3 1 each PO DAILY 03/07/17 11/02/18 11/01/18 07:00 History [Calcitrate + Vit D Caplet] Diosmin Complex No.1 [Vasculera] 630 mg PO DAILY 03/07/17 11/02/18 11/01/18 07:00 History Fish Oil/Dha/Epa [Fish Oil 1,200 1 each PO DAILY 03/07/17 11/02/18 11/01/18 07:00 History mg Fish Oil] Folic Acid 1 mg PO DAILY 03/07/17 11/02/18 11/01/18 07:00 History Furosemide [Lasix] 20 mg PO DAILY 03/07/17 11/02/18 11/01/18 07:00 History Glucosa Sethi 2Kcl/Chondroitin Sethi 1 each PO DAILY 03/07/17 11/02/18 11/01/18 07:00 History [Glucosamine & Chondroitin Cap] Hydralazine [Apresoline] 100 mg PO TID 03/07/17 11/02/18 11/02/18 05:00 History Hydroxychloroquine [Plaquenil] 400 mg PO DAILY 03/07/17 11/02/18 11/01/18 16:30 History Immune Globulin,Gamma 5% [Octagam 30 gm IV DIRECTED 03/07/17 11/02/18 10/05/18 10:00 History 5%] Leflunomide 20 mg PO DAILY 03/07/17 11/02/18 11/01/18 07:00 History Losartan [Cozaar] 100 mg PO DAILY 03/07/17 11/02/18 11/02/18 05:00 History Apixaban [Eliquis] 1 tab PO DAILY 10/26/18 11/02/18 10/25/18 17:00 History Diltiazem C.d. [Cardizem Cd] 240 mg PO DAILY 10/26/18 11/02/18 11/02/18 05:00 History Metoprolol Succinate [Toprol Xl] 200 mg PO DAILY 10/26/18 11/02/18 11/02/18 05:00 History Hydrocodone/Acetaminophen [[place] 1 each PO Q4H PRN PRN #30 tablet 11/02/18 Unknown Rx 5-325 Tablet] - History of Present Illness-CP Nature of Presenting Problem: 73 YOM PRESENTS WITH C/O CHEST "DISCOMFORT" ON R SIDE HE REPORTS THIS HAS BEEN INTERMITTENT FOR A "FEW WEEKS" BUT HE THOUGHT IF WAS HIS R LUNG LIKE PNA. HE CANNOT DESCRIBE THE PAIN FURTHER THAN DISCOMFORT DENIES IT BEING HEAVY, SHARP, PRESSURE LIKE OR SQUEEZING. HE HSA NOTED INCREASED SWEATING, REPORTS HIS FACE FEELS "FUNNY BUT NOT ON ONE SIDE" WELL PND AT NIGHT AND HAVING TO SLEEP ON A WEDGE. DENIES N/V Location: reports: substernal Chest Pain Radiation: reports: no radiation Quality of Pain: reports: other ("DISCOMFORT") Severity in ED: mild, moderate Onset/Duration: other (3 WKS) Timing: intermittent Context/Activities at Onset: reports: none Modifying Factors: improves with: nothing Associated Symptoms: reports: diaphoresis, shortness of breath Nitro Today/Relief: no nitro taken today Aspirin Treatment Today: no aspirin today Similar Symptoms Previously?: Yes Recently Seen Here or By Another Healthcare Provider: No Review of Systems - Adult - REVIEW OF SYSTEMS - ADULT Constitutional: reports: no symptoms reported. denies: see HPI, chills, fever, fatique, night sweats, weight gain, weight loss, other Eyes: reports: no symptoms reported. denies: see HPI, discharge, dry eyes, decreased vision, blurred vision, double vision, eye pain, redness, other Ears, Nose, Mouth & Throat: reports: no symptoms reported. denies: see HPI, ear discharge, ear pain, hearing loss, tinnitus, epistaxis, sinus problem, nose pain, loose teeth, mouth/dental pain, mouth swelling, hoarseness, throat pain, throat swelling, other Cardiovascular: reports: no symptoms reported, see HPI, chest pain ("DISCOMFORT"), irregular heart rate, palpitations, PND Respiratory: reports: shortness of breath (AT NIGHT). denies: no symptoms reported, see HPI, chronic cough, cough, dyspnea on exertion, excessive sputum production, hemoptysis, pleurisy, wheezing, other Gastrointestinal: reports: no symptoms reported. denies: see HPI, abdominal pain, hematemesis, constipation, diarrhea, difficulty swallowing, frequent heartburn, nausea, poor appetite, rectal bleeding, vomiting, other Genitourinary: reports: no symptoms reported. denies: see HPI, dysuria, discharge, frequency, flank pain, frequent UTI's, hematuria, hesitency, incontinence, urinary retention, urgency, other Musculoskeletal: reports: no symptoms reported. denies: see HPI, bone pain, back pain, frequent leg cramps, joint pain, joint swelling, muscle aches, muscle weakness, neck pain, other Integumentary: reports: no symptoms reported. denies: see HPI, hives, hair loss, itching, mole changes, nail changes, rash, skin sores/ulcer, skin thickening, other Neurological: reports: no symptoms reported. denies: see HPI, ataxia, dizziness/vertigo, headache/migraines, loss of balance, numbness, paresthesia, seizure, slurred speech, syncope, tremors, other Psychiatric: reports: no symptoms reported. denies: see HPI, anxiety, anti- depressant use, alcohol/drug dependence, depression, emotional problems, insomnia, panic attacks, suicidal thoughts, other Endocrine: reports: no symptoms reported. denies: see HPI, change in skin pigment, excessive sweating, goiter, cold intolerance, heat intolerance, increased hunger, increased thirst, polyuria, other Hematologic/Lymphatic: reports: no symptoms reported. denies: see HPI, blood clots, easy bruising, low blood count, lymphedema, prolonged bleeding, swollen lymph nodes, transfusions, other Allergic/Immunologic: reports: no symptoms reported. denies: see HPI, allergic reactions, allergic rhinitis, asthma, eczema, food allergy, frequent infections, hay fever, hives, positive PPD, urticaria, other Past History - Adult - PAST MEDICAL HISTORY-ADULT Review of Records: reports: Nursing Assessment Review, Social history reviewed & non-contributory. Major Childhood Illnesses: reports: denies history Cardiovascular: reports: CAD, CHF, HTN, hyperlipidemia Respiratory: reports: COPD Gastrointestinal: reports: denies history Obstetrical/Gynecological: reports: denies history Genitourinary: reports: denies history Musculoskeletal: reports: denies history Neurological: reports: denies history Endocrine/Immune: reports: thyroid disorder Other Conditions: reports: denies history - PRIOR SURGERIES/PROCEDURES Surgical/Procedure History: reports: back/neck - IMMUNIZATION STATUS Childhood Immunizations: See Nurse Assessment Flu Vaccine: See Nurse Assessment - FAMILY HISTORY Family History: reviewed, not pertinent Physical Exam-General - PHYSICAL EXAM-ADULT Initial Vital Signs Reviewed: Yes - CONSTITUTIONAL General Appearance: appears well, alert, no apparent distress - EYES Eyes: PERRL/EOMI - HEAD, EARS, NOSE, MOUTH & THROAT HENMT: normocephalic/atraumatic, moist mucous membranes, normal ENT inspection - NECK Neck: non-tender, full range of motion, supple - RESPIRATORY Respiratory: chest non-tender, lungs clear, normal breath sounds - CARDIOVASCULAR Cardiovascular: normal peripheral pulses, no JVD, no murmur, irregularly irregular. negative: regular rate, rhythm, no edema - GASTROINTESTINAL (ABDOMEN) Abdominal Exam: normal bowel sounds, non tender, soft - LYMPHATIC Lymphatic: no adenopathy - MUSCULOSKELETAL Back Exam: normal inspection, no CVA tenderness, no vertebral tenderness Extremity: normal range of motion, non-tender, normal gait, pedal edema ( EDEMA TO BLE) - SKIN Integumentary: normal color, normal turgor, warm/dry - NEUROLOGIC Neurologic: grossly normal - PSYCHIATRIC Psych/Mental Status: normal mood/affect, oriented x 3 - HEART Score HEART Score: History: Highly Suspicious HEART Score: ECG: Non-Specific Repolarization Disturbance/LBBB/PM HEART Score: Age: > or = 65 Years HEART Score: Risk Factors for Atherosclerotic Disease: > or = 3 Risk Factors or History of Atherosclerotic Disease HEART Score: Troponin: < or = Normal Limit Total HEART Score:: 7 Progress - PLAN OF CARE/RESULTS Progress/Plan/Lab Results: Vital Signs - 8 hr 02/06/19 12:41 Temperature 98.0 F Pulse Rate 109 H Respiratory Rate 18 Blood Pressure 143/95 Laboratory Results - last 24 hr 02/06/19 02/06/19 02/06/19 13:00 13:00 13:00 WBC 6.99 RBC 4.77 Hgb 13.8 L Hct 41.9 L MCV 87.8 MCH 28.9 MCHC 32.9 L RDW Std Deviation 15.4 H Plt Count 252 MPV 9.2 Immature Gran % (Auto) 0.4 Neut % (Auto) 57.6 Lymph % (Auto) 28.8 [place] % (Auto) 9.6 H Eos % (Auto) 2.9 Baso % (Auto) 0.7 Immature Gran # (Auto) 0.03 Neut # (Auto) 4.03 Lymph # (Auto) 2.01 Mcd[place] # (Auto) 0.67 H Eos # (Auto) 0.20 Baso # (Auto) 0.05 PT INR PTT (Actin FS) Sodium 143 Potassium 4.0 Chloride 105 Carbon Dioxide 27 Anion Gap 11 BUN 18 Creatinine 0.9 Estimated GFR/1.73 m2 > 60 BUN/Creatinine Ratio 20 Glucose 112 H Calculated Osmolality 288 Calcium 8.5 L Total Bilirubin 0.60 AST 19 ALT 47 H Alkaline Phosphatase 65 Creatine Kinase 337 H Troponin T [id number] Pept 616 H Total Protein 6.8 Albumin 3.9 Globulin 3.0 Albumin/Globulin Ratio 1.0 02/06/19 02/06/19 13:00 13:00 WBC RBC Hgb Hct MCV MCH MCHC RDW Std Deviation Plt Count MPV Immature Gran % (Auto) Neut % (Auto) Lymph % (Auto) [place]cd[place] % (Auto) Eos % (Auto) Baso % (Auto) Immature Gran # (Auto) Neut # (Auto) Lymph # (Auto) Mcdonough # (Auto) Eos # (Auto) Baso # (Auto) PT 14.7 INR 1.09 PTT (Actin FS) 29.5 Sodium Potassium Chloride Carbon Dioxide Anion Gap BUN Creatinine Estimated GFR/1.73 m2 BUN/Creatinine Ratio Glucose Calculated Osmolality Calcium Total Bilirubin AST ALT Alkaline Phosphatase Creatine Kinase Troponin T < 0.010 [id number] Pept Total Protein Albumin Globulin Albumin/Globulin Ratio Orders Category Date Time Status Cardiac Monitoring DIRECTED Care 02/06/19 12:36 Active Oxygen Therapy- ED Nursing DIRECTED Care 02/06/19 12:36 Active Saline Loc NOW Care 02/06/19 12:36 Completed CHEST-2 VIEWS [RAD] Stat Exams 02/06/19 12:36 Completed CBC WITH ELECTRONIC DIFF [HEME] Stat Lab 02/06/19 13:00 Completed CK PROFILE [SP CHEM] Stat Lab 02/06/19 13:00 Results COMPREHENSIVE METABOLIC PANEL [CHEM] Stat Lab 02/06/19 13:00 Results PRO B-NATRIURETIC PEPTIDE Stat Lab 02/06/19 13:00 Completed PROTIME WITH INR [COAG] Stat Lab 02/06/19 13:00 Completed PTT [COAG] Stat Lab 02/06/19 13:00 Completed TROPONIN T Stat Lab 02/06/19 13:00 Completed Aspirin Med 02/06/19 12:36 Discontinued 325 mg PO NOW ONE CP/SOB/Palp >45 yrs of Age Stat Oth 02/06/19 12:36 Ordered EKG [EKG] Stat Ther 02/06/19 12:36 Draft DISCUSSED ADMISSION WITH PATIENT AND FAMILY. OK WITH ADMISSION Result Diagrams: 02/06/19 13:00 02/06/19 13:00 - XRAY 1 XRAY Study: Chest Impression: See EMR Report (COMPARISON: 07/18/2014 FINDINGS: The lungs are hyperinflated indicating COPD, stable. There are stable fibrotic changes bilaterally with a basilar predominance. There is no discrete pleural fluid jenelle ection or pneumothorax. There is stable cardiomegaly. IMPRESSION: Stable COPD changes and fibrosis. No definite acute chest pathology by plain radiograph. Electronically signed by Kendrick Lozano 02/06/2019 1:30 PM) - CONSULTS/PCP/HOSPITALIST Notification #1 *Consult/PCP/Hospitalist*: DR CARVAJAL Time Discussed: 14:00 Consult Disposition: Admit Departure - Departure Date of Disposition Decision: 02/06/19 Time of Disposition Decision: 14:03 DIAGNOSIS: Chest pain, Afib, Edema DIAGNOSIS: (Ruled Out): Pneumonia Disposition: ADMITTED INPATIENT 09 Certified Medical Emergency: Emergent Condition: Stable Referrals and Follow-Ups: Belkis Gonzalez MD [Primary Care Provider] - - Critical Care Note This patient required my direct & personal management of CC.: No Attestation - Physician/ LEONCIO Attestation Patient care was provided by Advanced Practice Provider:: Yes Advanced Practice Provider:: Breana Rai Advanced Practice Provider documentation review:: The Mid-level provider docu mentation, treatment plan and medical decision making was reviewed by the physician who agrees with all treatment and medical decision making by the MLP. The physician spent face to face time with patient:: No Advanced Practice Provider documentation review:: Supervising physician onsite and consulted in the evaluation and care of this patient. The physician did not have a face to face encounter with the patient.
[2019-02-06 13:14] LABS: BASO# 0.05 X1000 (0.0-0.2); BASO% 0.7 % (0.0-0.8); EOS% 2.9 % (0.0-10.0); HEMATOCRIT 41.9 % (42.0-52.0); HEMOGLOBIN 13.8 g/dL (14.0-18.0); IMM GRAN# 0.03 X1000 (0.0-0.04); IMM GRAN% 0.4 % (0.0-0.5); LYMPH# 2.01 X1000 (1.2-3.4); LYMPH% 28.8 % (20.5-51.1); MCH 28.9 PG (27-31); MCHC 32.9 g/dL (33-37); MCV 87.8 FL (81-99); MONO# 0.67 X1000 (0.11-0.59); MONO% 9.6 % (1.7-9.3); MPV 9.2 FL (7.4-10.4); NEUT# 4.03 X1000 (1.4-6.5); NEUT% 57.6 % (42.2-75.2); PLT 252 X1000 (130-400); RBC 4.77 XMIL (4.7-6.1); RDW 15.4 % (11.5-14.5); WBC 6.99 X1000 (4.8-10.8)
[2019-02-06 13:28] LABS: AGAP 11; ALBUMIN 3.9 g/dL (3.5-5.0); ALKALINE PHOSPHATASE 65 U/L (32-122); BUN 18 mg/dL (8-22); CALCIUM 8.5 mg/dL (8.8-10.2); CHLORIDE 105 mmol/L (98-107); COSMO 288; CREATININE 0.9 mg/dL (0.7-1.2); ESTIMATED GFR > 60; GLUCOSE 112 mg/dL (70-104); GOT 19 U/L (10-34); GPT 47 U/L (10-44); SODIUM 143 mmol/L (136-145); TCO2 27 mmol/L (25-35); TOTAL PROTEIN 6.8 g/dL (6.3-8.3)
[2019-02-06 13:32] LABS: INR 1.09; PROTIME 14.7 Seconds (11.0-16.0)
--- NOTE | 2019-02-06 13:32 | Diag Imaging Result Doc PS360 ---
EXAM: CHEST-2 VIEWS INDICATION: cp TECHNIQUE: 2 views COMPARISON: 07/18/2014 FINDINGS: The lungs are hyperinflated indicating COPD, stable. There are stable fibrotic changes bilaterally with a basilar predominance. There is no discrete pleural fluid collection or pneumothorax. There is stable cardiomegaly. IMPRESSION: Stable COPD changes and fibrosis. No definite acute chest pathology by plain radiograph. Electronically signed by Kendrick Loznao 02/06/2019 1:30 PM
[2019-02-06 13:33] LABS: CK PROFILE 337 U/L (24-204); PTT 29.5 Seconds (22.3-41.8)
[2019-02-06] MEDS ORDERED: ZOFRAN IV PRN (14:07)
[2019-02-06 14:09] LABS: CK INDEX 2.6 (0.0-2.5); CK-MB 8.79 ng/mL (0.0-5.0)
[2019-02-06] MEDS ORDERED: ABATACEPT IV SCH (14:36)
[2019-02-06] MEDS ORDERED: [UNRECOGNIZED DRUG - OTHER] IV SCH (14:36)
[2019-02-06] MEDS ORDERED: NORCO-5 PO PRN (14:36)
--- NOTE | 2019-02-06 15:26 | HISTORY AND PHYSICAL ---
PRIMARY CARE PHYSICIAN: Dr. Belkis Gonzalez. PRIMARY BEHAVIORAL SCIENCES INSTRUCTOR: Dr. Daily in [facility] in [place]. PRIMARY CHIEF OPERATING OFFICER: Dr. Warren. CHIEF COMPLAINT: Chest pain/chest discomfort. HISTORY OF PRESENT ILLNESS: This is a 73-year-old male with extensive past medical history of coronary artery disease, COPD, hyperlipidemia and hypertension, who presented to the emergency department complaining of chest discomfort. Patient reports that in the last few weeks, he noticed some chest discomfort with minimal to moderate exertion. He reports that he used to walk more than 100 feet and after a few steps, he noticed recently that he is getting very short of breath. He denies any paroxysmal nocturnal dyspnea. He denies any chest pain. The patient reports those episodes last approximately 15 to 20 minutes and then those go away. That is basically the reason why he presented to the emergency department. Here upon ER evaluation, the ER evaluation reveals normal blood pressure with the first set of troponins negative but his CK-MB is elevated. Considering his past medical history, I think this patient needs to be admitted to the hospital for further evaluation and treatment. PAST MEDICAL HISTORY: 1. Coronary artery disease with no myocardial infarction or stent placed. 2. Congestive heart failure. It was documented in previous admission but patient denies having that problem. 3. Hypertension. 4. Hyperlipidemia. 5. Benign prostatic hypertrophy. 6. Degenerative joint disease. 7. Atrial fibrillation, on Eliquis. Patient reports having had few cardioversion attempts but those were unsuccessful. 8. Rheumatoid arthritis. 9. IgG deficiency. PAST SURGICAL HISTORY: 1. Bilateral wrist carpal tunnel surgery repair. 2. First, 2nd and 3rd degree metcalf on the feet, legs, stomach and arms. 3. Lower back surgery x4. 4. Neck surgery x4. 5. Right rotator cuff surgery and left rotator cuff surgery. 6. Right knee surgery. 7. Lower leg endovenous laser ablation. 8. Bilateral cataract surgery. 9. Cardioversion done on 07/29/[address] Hansen at [facility] in [place] but unsuccessful. FAMILY HISTORY: Mother and father both have diabetes. Father has congestive heart failure. ALLERGIES: Patient is allergic to Flomax, finasteride, Bactrim, amlodipine, benazepril, Mobic. All those apparently have caused rash. SOCIAL HISTORY: Patient denies smoking, he quit in 1993, and before he used to smoke 2 packs per day for 30 years. He does not drink any alcohol or use any illicit drugs. 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 HOME MEDICATIONS: 1. Cardizem CD 240 mg p.o. daily. 2. Toprol 200 mg p.o. daily. 3. Lasix 20 mg p.o. daily. 4. Losartan 100 mg 1 tablet p.o. daily. 5. Neurontin 300 mg 1 tablet p.o. b.i.d. 6. Synthroid 100 mcg 1 tablet p.o. daily. 7. Zetia 10 mg 1 tablet p.o. daily. 8. Hydroxychloroquine 200 mg 1 tablet p.o. b.i.d. 9. Folic acid 1 mg 1 tablet p.o. daily. 10. Leflunomide 20 mg 1 tablet p.o. daily. 11. IVIG Octagam 30 g every month. 12. Orencia 1000 mg IV per month. 13. Hydralazine 50 mg p.o. 3 times per day. 14. Vasculera 630 mg 1 tablet p.o. daily. 15. Eliquis 5 mg 1 tablet p.o. b.i.d. 16. Fish oil 1250[mg p.o. daily. 17. Selenium 200 mg p.o. daily. 18. Magnesium 400 mg p.o. daily. 19. Glucosamine chondroitin 500 mg p.o. daily. 20. Centrum with iron 500 mg p.o. daily. 21. Calcium 600 mg plus D daily 1 tablet p.o. daily. REVIEW OF SYSTEMS: Patient denies any chest pain, any weight loss. All the rest of system were negative except what were mentioned in the history and physical. PHYSICAL EXAMINATION: VITAL SIGNS: Temperature 98 degrees, heart rate 109, respiratory rate 18, blood pressure 132/92, O2 saturation 96% on 2 L nasal cannula. GENERAL: This is a chronically ill-appearing, 73-year-old male, lying in bed, in no acute distress. HEENT: Head is normocephalic, atraumatic. Pupils equal, round, reactive to light and accommodation. NECK: No JVD noted. No carotid bruits. No lymphadenopathy. No thyromegaly. CARDIOVASCULAR: Irregularly irregular heart rhythm. No murmurs, gallops, or rubs noted. RESPIRATORY: Clear bilaterally to auscultation. No work of breathing or using accessory muscles. ABDOMEN: Soft, nontender to palpation. Bowel sounds present. No organomegaly. EXTREMITIES: No clubbing, cyanosis, or edema. Peripheral pulses present in both legs. NEUROLOGICAL: The patient is alert and oriented x3. Moves 4 extremities. LABORATORY DATA: Reviewed. First set of troponins are negative. CK-MB is mildly elevated at 8.79 and CK is 8.65. ASSESSMENT AND PLAN: 1. Chest pain in a patient with coronary artery disease. The patient is reporting this sensation of chest discomfort for the last few weeks and also he reported getting short of breath really quick recently. At this point, I think what we are going to do is to check troponins 3 more times. We are going to check CK profile considering that the first CK-MB is elevated. We are going to repeat an echocardiogram. The last one that we have done was on August last year. Considering his comorbidities, I think we are going to consult Cardiology for further workup. This patient may need to have a Lexiscan later on. 2. Chronic atrial fibrillation. Patient is on Eliquis. Also he is on Cardizem CD. We will continue with same management. 3. Rheumatoid arthritis. Patient is on leflunomide and Orencia. We will continue with those. 4. IgG deficiency. Aware. 5. Hypertension. Blood pressure is under control. We will continue with home medications. 6. Hyperlipidemia. We will continue with Zetia. 7. Benign prostatic hypertrophy. Aware. Apparently, he is on no medications for that. 8. Disposition. As mentioned before, we will check cardiac enzymes 3 more times and we will repeat echocardiogram. We will consult Cardiology to see if we need to repeat the Lexiscan and we will go from there. Also, because this patient was complaining of some blurry vision and considering he has coronary artery disease, I prefer to rule out any carotid artery stenosis. What we are going to do is CTA of head and neck and see if there is any obstruction on there. Also, we will check a CT of the head with contrast and we will go from there. 9. Further recommendations to follow according to the clinical situation of the patient. Will transfer this patient to [facility]. cc: MD MISTY Hansen
--- NOTE | 2019-02-06 15:34 | Diag Imaging Result Doc PS360 ---
EXAM: CT HEAD W/O CONTRAST INDICATION: headache TECHNIQUE: This exam was performed using automated exposure control, adjustment of mA or kV according to patient size, and/or use of iterative reconstruction technique. COMPARISON: None. FINDINGS: There is no definite acute infarct given the limited sensitivity of CT versus MRI. There is no discrete intracranial mass, mass effect, or intracranial hemorrhage. There is mild right maxillary sinus mucosal disease. Surrounding soft tissues and bony structures are essentially unremarkable, otherwise. IMPRESSION: No evidence of acute intracranial pathology. Electronically signed by Kendrick Lozano 02/06/2019 3:31 PM
[2019-02-06 15:49] LABS: CK INDEX 2.5 (0.0-2.5); CK-MB 8.16 ng/mL (0.0-5.0)
--- NOTE | 2019-02-06 15:56 | Diag Imaging Result Doc PS360 ---
EXAM: CT ANGIOGRAM HEAD/NECK INDICATION: blurry vision TECHNIQUE: This exam was performed using automated exposure control, adjustment of mA or kV according to patient size, and/or use of iterative reconstruction technique. Thin section axial images and 3-D MIPS were obtained. COMPARISON: None. FINDINGS: NECK: There is moderate patchy atherosclerotic calcification at the aortic arch. The common carotid arteries are patent bilaterally. There is mild to moderate patchy atherosclerotic calcification at the carotid bulbs bilaterally with less than 20% luminal narrowing. There is mild atherosclerotic calcification at the origin of the external carotid artery on the left. Distal to the carotid bulbs, the internal carotid arteries are widely patent throughout. No flow-limiting stenosis, vascular malformation, aneurysm, or dissection is identified, otherwise. The vertebral arteries are codominant and patent. Head: There is no evidence of flow-limiting stenosis, vascular malformation, or cerebral aneurysm involving the arteries comprising the [place] including the anterior, middle, and posterior circulations. There is trace calcification involving the carotid siphons bilaterally. The basilar artery is widely patent. IMPRESSION: 1.No evidence of flow-limiting stenosis involving the visualized cerebral arteries. 2.Mild to moderate patchy atherosclerotic calcification involving the carotid bulbs bilaterally with less than 20% stenosis. Electronically signed by Kendrick Lozano 02/06/2019 3:53 PM
--- NOTE | 2019-02-06 17:24 | EKG Report ---
Test Performed on : 02/06/2019 2:56:00 PM Test Reason : repeat Blood Pressure : / mmHG Vent. Rate : 084 BPM Atrial Rate : 241 BPM P-R Int : 000 ms QRS Dur : 088 ms QT Int : 388 ms P-R-T Axes : 000 -15 -17 degrees QTc Int : 458 ms Atrial fibrillation. with premature ventricular or aberrantly conducted complexes. Nonspecific ST and T wave abnormality Abnormal ECG When compared with ECG of 06-FEB-2019 12:42, (Unconfirmed) Nonspecific T wave abnormality, improved in Lateral leads Unconfirmed Result
[2019-02-06] MEDS: APRESOLINE PO SCH (20:26)
[2019-02-06] MEDS ORDERED: NEURONTIN PO SCH (21:00)
[2019-02-07 03:29] LABS: HEMATOCRIT 40.7 % (42.0-52.0); HEMOGLOBIN 13.1 g/dL (14.0-18.0); MCH 28.5 PG (27-31); MCHC 32.2 g/dL (33-37); MCV 88.5 FL (81-99); RBC 4.6 XMIL (4.7-6.1); WBC 5.95 X1000 (4.8-10.8)
[2019-02-07 03:30] LABS: MPV 9.3 FL (7.4-10.4); RDW 15.3 % (11.5-14.5)
[2019-02-07 04:11] LABS: AGAP 11; BUN 20 mg/dL (8-22); CALCIUM 8.6 mg/dL (8.8-10.2); CHLORIDE 108 mmol/L (98-107); COSMO 291; CREATININE 1.1 mg/dL (0.7-1.2); ESTIMATED GFR > 60; GLUCOSE 97 mg/dL (70-104); POTASSIUM 3.9 mmol/L (3.5-5.1); SODIUM 145 mmol/L (136-145); TCO2 26 mmol/L (25-35)
[2019-02-07 04:35] LABS: CK INDEX 2.5 (0.0-2.5); CK-MB 6.41 ng/mL (0.0-5.0)
[2019-02-07] MEDS ORDERED: PRILOSEC PO SCH (07:00)
[2019-02-07] MEDS ORDERED: SYNTHROID PO SCH (07:00)
[2019-02-07] MEDS: APRESOLINE PO SCH ×3 (08:29→20:18)
[2019-02-07] MEDS ORDERED: PATIENT'S OWN MED PO SCH ×2 (09:00)
[2019-02-07] MEDS ORDERED: FOLIC ACID PO SCH (09:00)
[2019-02-07] MEDS ORDERED: CARDIZEM CD PO SCH (09:00)
[2019-02-07] MEDS ORDERED: MAG-OX PO SCH (09:00)
[2019-02-07] MEDS ORDERED: CALTRATE 600 + D PO SCH ×2 (09:00→10:30)
[2019-02-07] MEDS ORDERED: LASIX PO SCH (09:00)
[2019-02-07] MEDS ORDERED: GLUCOSAMINE 500 MG/CHONDROITIN 400 MG PO SCH (09:00)
[2019-02-07] MEDS ORDERED: THERA M PLUS PO SCH (09:00)
[2019-02-07] MEDS ORDERED: TOPROL XL PO SCH (09:00)
[2019-02-07] MEDS ORDERED: ELIQUIS PO SCH (09:00)
[2019-02-07] MEDS ORDERED: ARAVA PO SCH (09:00)
[2019-02-07] MEDS ORDERED: ZETIA PO SCH (09:00)
[2019-02-07] MEDS ORDERED: FISH OIL CONCENTRATE PO SCH (09:00)
[2019-02-07] MEDS ORDERED: PLAQUENIL PO SCH (09:00)
[2019-02-07] MEDS ORDERED: NORCO-5 PO PRN (10:17)
[2019-02-07] MEDS ORDERED: ZOFRAN IV PRN (10:22)
[2019-02-07] MEDS: GLUCOSAMINE 500 MG/CHONDROITIN 400 MG PO SCH (10:27)
[2019-02-07] MEDS: ELIQUIS PO SCH (10:28)
[2019-02-07] MEDS: ARAVA PO SCH (10:28)
--- NOTE | 2019-02-07 10:55 | CARDIOLOGY CONSULTATION ---
DATE: 02/07/2019 REASON FOR CONSULTATION: Patient with dyspnea and some chest discomfort. The patient presents to the hospital. A 73-year-old, male. HISTORY: The patient presented to the emergency room at [facility] about 12:30 p.m. with complaints of several weeks of not feeling well. He says that his functional capacity has declined rapidly. 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 He has to stop. He also had noted some vague heaviness in the chest, not a pain, just prior to coming to the hospital. He told his and they decided to come in for evaluation. Chest x-ray was done which shows COPD changes and fibrosis. No acute pathology. EKG shows atrial fibrillation with PVCs and a low voltage type of pattern. The patient has been given oxygen. His cardiac enzymes were checked. His first CPK was 337, subsequent 324, the last one is 259 this morning at 3:17 in the morning. They have checked troponin levels twice yesterday. They are negative. His CK index was 2.6 initially, which is positive, then 2.5 and 2.5. The proBNP was 616 pg/mL which is only minimally elevated and upper normal is 229 pg/mL. The patient feels better while he is just resting. I am seeing him at about 8:45 in the morning of February 07. is at the bedside. The patient's past history is positive for the finding of atrial fibrillation around the time of one of his back surgeries in 1998. This was done in [place] and they referred him to a physician in [place], Dr. Dimitri Mina. Subsequently, the patient was transferred to the care of another physician affiliated with the [facility] in [place]. The patient was not aware that he had persistent atrial fibrillation and they pointed that out to him when they saw him in [place] just before having a right wrist carpal tunnel surgery. Then he was referred to Dr. Daily, a mrp controller with the [facility], who evaluated the patient on 10/21/2018. At that time, they had obtained previously a myocardial perfusion stress test with Lexiscan protocol on 07/07/2018. It was a stress only protocol and the report is that it was negative for ischemia or scar. A 2D echocardiogram they did at that time showed that his pulmonary pressure was 20 mmHg with moderate TR, preserved ejection fraction. The patient has a history of hypertension and hyperlipidemia. He has had history of venous insufficiency and in 2016, he underwent ablation of varicose veins. The right leg was ablated on 03/19/2017 and the left leg on 04/02/2017. The patient carries a history of rheumatoid arthritis for the past 3 years. He is presently under the care of a physician in [place] for that. He is presently taking medications. SURGICAL HISTORY: Very extensive. He has had 4 back surgeries, 03/30/1998, 11/07/1998. He has had neck surgery on 02/18/2010, again on 05/29/2011. He has had, again, low back surgery on 05/05/2012. On 07/17/2011, he had right shoulder rotator cuff surgery. On 12/03/2011, left shoulder rotator cuff surgery. On 03/03/2012, left wrist carpal tunnel. In October 2012, he had neck surgery again. On 03/11/2014, he had right knee surgery. On 09/13/2015, left shoulder rotator cuff surgery. He has had right wrist carpal tunnel on 10/17/2017 and then he has had cataract surgery of the left eye on 02/10/2018 and right eye 09/08/2018. Recently, he had a hemorrhoidectomy in October [address] Mancini. The patient has had previous attempt at cardioversion after being found in atrial fibrillation and this failed. HOME MEDICATIONS: At the time of this admission included Orencia 250 mg once a month, apixaban, Eliquis 5 mg twice a day, calcium citrate/vitamin D3 once daily, diltiazem 240 daily, Vasculera 630 mg daily, diosmin, Zetia 10 mg daily, fish oil daily, folic acid 1 mg daily, furosemide 10 mg daily, gabapentin 300 twice a day, hydralazine 50 three times a day, Plaquenil 200 mg daily, leflunomide 20 mg daily, immuno-gammaglobulin, Octagam 30 g IV once a month, levothyroxine 100 mcg daily, losartan 100 daily, magnesium 400 daily, metoprolol 200 daily, selenium 200 daily. REVIEW OF SYSTEMS: Progressive functional decline, dyspnea, some minor back pain. He does not take narcotics for back pain. He has been told that he had spinal stenosis in the past. He also was told at some point that he had asbestosis. The patient suffered an accident when he was deployed in [facility] with the [employer] and got extensive second and third-degree metcalf in the legs requiring skin grafting. 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 He has been to his for 50+ years. He has been for 53 years. He has 3 children. He is not a smoker. He quit smoking in 1997. He is not a drinker. FAMILY HISTORY: Really not contributory for heart attacks. However, his father and brother had congestive heart failure. The patient is not aware of having any coronary artery disease. PHYSICAL EXAMINATION: Vital Signs: Blood pressure is 117/91, temperature 97 degrees, pulse 87, respirations 17. Patient is awake, alert, oriented, in no distress. HEENT: Unremarkable. Chest: Diminished breath sounds diffusely. Heart sounds are irregularly irregular, distant. Abdomen is obese, nontender. Extremities show good distal pulses. No edema. He has extensive scars from skin grafting in both legs. Neurological Examination: He follows commands, moves four extremities. BLOOD WORK: Sodium 145, potassium 3.9, BUN is 20, creatinine 1.1. His hemoglobin is 13.1, hematocrit is 40.7. IMPRESSION: 1. Patient who presents with increasing dyspnea. 2. Atrial fibrillation, permanent. 3. Atypical chest discomfort. 4. Elevated "cardiac enzymes". Only the CPK and CK-MB fraction index are elevated. Troponins are negative. 5. History of hypertension. 6. Obesity. 7. Long-term history of rheumatoid arthritis. 8. Abnormal chest x-ray. 9. History of extensive degenerative arthritis requiring previous back surgeries x4 and neck surgeries x2. RECOMMENDATIONS: At this time, I am going to suggest to get a CT scan of the chest to evaluate for evidence of interstitial lung disease. I would do a pulmonary function test. We will continue to monitor EKGs and trend cardiac enzymes. I will get a followup echocardiogram. We will check a rheumatoid arthritis level, sedimentation rate, C-reactive protein, aldolase to try to determine activity of his rheumatoid arthritis. We will consider pursuing cardiac catheterization on him at some point if there is no indication of activity of rheumatoid arthritis and if his CT scan shows significant coronary atherosclerosis. If, on the other hand, we find significant pulmonary fibrosis, I would suggest to get a fall internship on the case to render an opinion and also to follow up on this patient's possible pulmonary condition. Thank you again for the opportunity to participate in his evaluation. cc: Robert Esquivel MD
[2019-02-07 10:59] LABS: CK INDEX 2.4 (0.0-2.5); CK-MB 7.1 ng/mL (0.0-5.0)
[2019-02-07] MEDS ORDERED: APRESOLINE PO SCH (13:00)
--- NOTE | 2019-02-07 18:17 | PROGRESS NOTE ---
DATE: 02/07/2019 SUBJECTIVE: The patient is awake and seated on the chair. Not in any obvious distress. OBJECTIVE: Vital signs: Temperature 97.6, pulse is 55, respiratory rate 16, blood pressure is 127/98, oxygen saturation 96%. HEENT: Atraumatic, normocephalic. Cardiovascular System: S1, S2. Respiratory system has evidence of good air entry bilaterally. Abdomen is soft, nontender. No masses felt. Extremities: Has evidence of edema in both lower extremities. Central nervous system: No obvious focal deficits noted. DIAGNOSTIC STUDIES: WBC is 5.95, hematocrit 40.7, with a platelet count of 232,000. Sodium is 145, potassium 3.9, chloride is 108, bicarbonate 26, BUN is 20, creatinine 1.1. ASSESSMENT AND PLAN: 1. Atypical chest pain. Follow up on cardiac enzymes. Cardiac workup at recommendation of Cardiology team. 2. Atrial fibrillation. Continue Cardizem as well as Eliquis. 3. Rheumatoid arthritis. Continue current regimen. 4. Hypertension. Controlled. 5. Hyperlipidemia. Continue lipid-lowering agent. 6. Deep vein thrombosis prophylaxis. Lovenox. 7. Gastrointestinal prophylaxis. Proton pump inhibitor. cc: Ramo Irwni MD
--- NOTE | 2019-02-07 19:27 | Diag Imaging Result Doc PS360 ---
EXAM: CT THORAX W/O CONTRAST INDICATION: abnormal chest X Ray TECHNIQUE: This exam was performed using automated exposure control, adjustment of mA or kV according to patient size, and/or use of iterative reconstruction technique. COMPARISON: 03/07/2017 FINDINGS: There is stable pulmonary emphysema. There is stable patchy peripheral fibrotic change bilaterally. There is a pleural-based calcified granuloma at the lingula, stable. The lungs are clear, otherwise. There is no airspace consolidation. There is no pleural fluid collection and no pneumothorax. There is stable cardiomegaly. There are calcified mediastinal and hilar lymph nodes indicating prior granulomatous disease. There is no significant lymphadenopathy, otherwise. Limited views of the upper abdomen reveals a stable prominent calcified gallstone. There is advanced multilevel thoracic spondylosis. IMPRESSION: Stable COPD and fibrotic changes as described. No evidence of acute chest pathology. Electronically signed by Kendrick Lozano 02/07/2019 7:24 PM
[2019-02-07] MEDS ORDERED: NEURONTIN PO SCH (21:00)
[2019-02-08 05:51] LABS: HEMOGLOBIN 14.1 g/dL (14.0-18.0); MCH 28.8 PG (27-31); MCV 89.8 FL (81-99); MPV 9.5 FL (7.4-10.4); RBC 4.9 XMIL (4.7-6.1); RDW 15.7 % (11.5-14.5); WBC 5.76 X1000 (4.8-10.8)
[2019-02-08 06:26] LABS: AGAP 11; BUN 22 mg/dL (8-22); CALCIUM 9.5 mg/dL (8.8-10.2); CHLORIDE 106 mmol/L (98-107); COSMO 288; ESTIMATED GFR > 60; GLUCOSE 88 mg/dL (70-104); POTASSIUM 3.9 mmol/L (3.5-5.1); SODIUM 143 mmol/L (136-145); TCO2 26 mmol/L (25-35)
[2019-02-08] MEDS ORDERED: PRILOSEC PO SCH (07:00)
[2019-02-08] MEDS ORDERED: SYNTHROID PO SCH (07:00)
--- NOTE | 2019-02-08 07:23 | EKG Report ---
Test Performed on : 02/08/2019 06:50:01 AM Test Reason : atrial fibrillation Blood Pressure : / mmHG Vent. Rate : 075 BPM Atrial Rate : 375 BPM P-R Int : 000 ms QRS Dur : 090 ms QT Int : 382 ms P-R-T Axes : 000 -27 -40 degrees QTc Int : 426 ms Atrial fibrillation. with premature ventricular or aberrantly conducted complexes. Nonspecific ST and T wave abnormality Abnormal ECG When compared with ECG of 07-FEB-2019 09:25, (Unconfirmed) Atrial fibrillation. has replaced Sinus rhythm. Nonspecific T wave abnormality no longer evident in Anterior leads QT has lengthened Confirmed by Linnea MEHTA, Gurjit Edwards ([id number]) on 02/09/2019 10:01:10 AM
[2019-02-08] MEDS: APRESOLINE PO SCH ×2 (08:30→14:53)
[2019-02-08] MEDS: ELIQUIS PO SCH (08:31)
[2019-02-08] MEDS: GLUCOSAMINE 500 MG/CHONDROITIN 400 MG PO SCH (08:31)
[2019-02-08] MEDS: ARAVA PO SCH (08:32)
[2019-02-08] MEDS ORDERED: MAG-OX PO SCH (09:00)
[2019-02-08] MEDS ORDERED: FOLIC ACID PO SCH (09:00)
[2019-02-08] MEDS ORDERED: LOVENOX SUBQ SCH (09:00)
[2019-02-08] MEDS ORDERED: PLAQUENIL PO SCH (09:00)
[2019-02-08] MEDS ORDERED: CALTRATE 600 + D PO SCH (09:00)
[2019-02-08] MEDS ORDERED: THERA M PLUS PO SCH (09:00)
[2019-02-08] MEDS ORDERED: PATIENT'S OWN MED PO SCH ×2 (09:00)
[2019-02-08] MEDS ORDERED: ZETIA PO SCH (09:00)
[2019-02-08] MEDS ORDERED: CARDIZEM CD PO SCH (09:00)
[2019-02-08] MEDS ORDERED: TOPROL XL PO SCH (09:00)
[2019-02-08] MEDS ORDERED: LASIX PO SCH (09:00)
[2019-02-08] MEDS ORDERED: FISH OIL CONCENTRATE PO SCH (09:00)
--- NOTE | 2019-02-08 09:36 | EKG Report ---
Test Performed on : 02/07/2019 09:25:38 AM Test Reason : new cardiology consult today Blood Pressure : / mmHG Vent. Rate : 091 BPM Atrial Rate : 091 BPM P-R Int : 296 ms QRS Dur : 088 ms QT Int : 268 ms P-R-T Axes : 068 -03 212 degrees QTc Int : 329 ms Sinus rhythm. with 1st degree AV block. with premature atrial complexes. Low voltage QRS Nonspecific ST and T wave abnormality Abnormal ECG When compared with ECG of 06-FEB-2019 14:56, (Unconfirmed) Sinus rhythm. has replaced Atrial fibrillation. Nonspecific T wave abnormality now evident in Anterior leads QT has shortened Confirmed by Linnea MEHTA, Gurjit Edwards ([id number]) on 02/09/2019 10:00:23 AM
[2019-02-08 09:43] LABS: BLOOD TYPE ARTERIAL; SAMPLE BLOOD
[2019-02-08 09:44] LABS: ALLEN TEST YES; BE 1.2 mmoll (-3.0-3.0); HCO3-(ACT) 25.8 mmoll (20.0-26.0); METHB 0.7 % (0.0-1.5); O2(CT) 19.1 mL/dL (15.0-23.0); O2HB 93.6 % (95.0-99.0); PCO2(98.6) 41 mmHg (35-45); PO2(98.6) 74 mmHg (60-100); THB 14.5 g/dL (11.5-17.4); pH(98.6) 7.41 (7.35-7.45)
[2019-02-08 09:45] LABS: MODALITY ROOM AIR
--- NOTE | 2019-02-08 09:47 | ECHO REPORT ---
ORDER DATE: 02/06/2019 INTERPRETING PHYSICIAN: Dr. Esquivel REQUESTING PHYSICIAN: CLINICAL INDICATIONS: This is a 73-year-old male with chest pain, coronary heart disease, COPD. M-MODE MEASUREMENTS: Right ventricle: cm. Left ventricle end diastole: 6.3 cm. Left ventricle end systole: 4.6 cm. Posterior wall: 1.1 cm. Interventricular septum: 1.1 cm. Left atrium: 5.0 cm. Aortic root: 3.8 cm. SUMMARY OF 2-DIMENSIONAL IMAGIN. Left ventricular systolic function is normal. Ejection fraction is 58%. Optison was added to optimize visualization of endocardium. There is no wall motion abnormality. 2. The left atrium is markedly enlarged, and so is the right atrium. 3. Right ventricle appears to be mildly enlarged. 4. The aortic valve has 3 cusps, and they open normally. Color flow mapping is really unremarkable. 5. Pulmonic valve looks normal. Color flow mapping is unremarkable. 6. Tricuspid valve looks normal. Color flow mapping is unremarkable. 7. Mitral valve looks normal. Color flow mapping indicates very minimal degree of regurgitation. 8. Pulse wave Doppler of mitral inflow shows single filling wave. The patient is in atrial fibrillation. 9. Diastolic function cannot be properly evaluated here due to lack of sinus rhythm. Diastolic function is likely to be impaired given the significant enlargement of both atria. 10.The inferior vena cava is not dilated. 11.The pulmonary systolic pressure, interestingly, is estimated at 34 mmHg. 12.Incidental finding of a gallstone in the gallbladder. CONCLUSIONS: In summary, this study shows: 1. Normal left ventricular systolic function. Ejection fraction is 58%. Optison added. 2. No significant valvular abnormality. 3. Significant enlargement of both atria. 4. Normal pulmonary pressure. 5. Incidental finding of large gallstone. cc: MD Stephen Harper MD [facility]ERSoni
--- NOTE | 2019-02-08 11:58 | PROGRESS NOTE ---
DATE: 02/08/2019 SUBJECTIVE: The patient is awake. Not in any obvious distress. OBJECTIVE: Vital Signs: Temperature 97.9 degrees, pulse 83, respiratory rate 17, blood pressure 123/72, oxygen saturation is 94%. HEENT: Atraumatic, normocephalic. Cardiovascular System: S1, S2. Respiratory System: Has evidence of good air entry bilaterally. Abdomen: Soft. Nontender. No masses felt. Extremities: No evidence of edema. Central Nervous System: No obvious focal deficit noted. Labs: WBCs 5.76, hematocrit is 44.0, with a platelet count of 249,000. ABG, 7.41/41/74/95%. Chemistry: Sodium 143, potassium 3.9, chloride is 106, bicarb 26, BUN is 22, creatinine 1.0. ASSESSMENT AND PLAN: 1. Atypical chest pain. The patient seems to be doing better from a clinical perspective. Further cardiac workup recommendation of the cardiology team. 2. Chronic obstructive pulmonary disease. Nebulized bronchodilators as needed. 3. Cholelithiasis, asymptomatic. 4. Atrial fibrillation. Continue Cardizem as well as Eliquis. 5. Rheumatoid arthritis. Continue current regimen. 6. Hypertension, controlled. 7. Hyperlipidemia. Continue lipid-lowering agent. 8. Deep vein thrombosis prophylaxis. Lovenox. 9. Gastrointestinal prophylaxis. Proton pump inhibitor. cc: Ramo Irwin MD
[2019-02-08 15:31] VITALS: BP 101/66
--- NOTE | 2019-02-08 16:25 | CARDIOLOGY PROGRESS NOTE ---
DATE: 02/08/2019 CHIEF COMPLAINT: Shortness of breath and fatigue. SUBJECTIVE: Mr. Morgan feels about the same. He has just been resting. He has no chest pain. No other issues going on. OBJECTIVE: Vital Signs: Blood pressure 101/66, temperature 97.8, pulse 61, respirations 18. General: He is awake, alert, in no distress. HEENT: Unremarkable. Chest: Clear to auscultation and percussion. Heart: Heart sounds are irregularly irregular. No gallop or murmur. Abdomen: Obese. Nontender. Extremities: Show good pulses, no edema. Neurological: Follows commands. Moves four extremities. LABORATORY DATA: Hemoglobin is normal. White cell count normal. Blood gases on room air: pO2 74, pCO2 41, pH 7.41. BUN and creatinine normal. Troponin has been checked four times, all normal. C reactive protein was normal. Sedimentation rate was normal. proBNP level was minimally elevated at 616 picograms/mL, it is about 2 and a half baseline. Rheumatoid factor was negative. IMAGING: CT of the chest was done and it showed stable COPD and fibrotic changes as described. No acute pathology. Pulmonary function test was done today and showed minimal interstitial restriction. His monitoring engineer shows atrial fibrillation with controlled rate. His echocardiogram showed preserved ejection fraction at 58% with significant enlargement of both atria, normal pulmonary pressure, and a large gallstone. IMPRESSION: Patient with 1. Permanent atrial fibrillation. 2. Exertional dyspnea, probably related to limited cardiac output. 3. Atypical chest discomfort. 4. History of hypertension. 5. Long-term history of rheumatoid arthritis. 6. The patient seems to have mild coronary atherosclerosis based on calcification of the coronary arteries, specifically the left anterior descending noted on his CT of the lungs. This is relatively mild calcification. 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 He also is obese. His body mass index is 34.5. That, in combination with some mild pulmonary fibrosis, is probably leading to his ongoing complaints. I think the patient is safe to go home at this time. Further interventions can be performed on an outpatient basis. The patient, at this time, is going to be kept on anticoagulation, apixaban. cc: Robert Esquivel MD
--- NOTE | 2019-02-15 17:36 | ED EKG INTERP ---
This chart was entered by Bryn Nino Scribe, acting as scribe for Moisés Allen MD. EKG Interpretation - EKG Time of EKG reading by physician:: 12:42 EKG Read and Signed by:: Moisés Allen EKG Interpretation (*Must complete 3 of following elements*): Abnormal Rate: 112 Rhythm: A fib with RVR Comments: non specific ST and T wave abnormality Attestation - Physician/ LEONCIO Attestation Patient care was provided by Advanced Practice Provider:: Yes Advanced Practice Provider:: Breana Rai Advanced Practice Provider documentation review:: The Mid-level provider documentation, treatment plan and medical decision making was reviewed by the physician who agrees with all treatment and medical decision making by the MLP. The physician spent face to face time with patient:: No Advanced Practice Provider documentation review:: Supervising physician onsite and consulted in the evaluation and care of this patient. The physician did not have a face to face encounter with the patient. This chart was documented by the indicated scribe, (Bryn Nino Scribe) and accurately reflects the services I performed and decisions made by me, Moisés Allen MD, as attested by the provider's signature.
--- NOTE | 2019-02-18 13:22 | DISCHARGE SUMMARY ---
ADMISSION DATE: 02/07/2019 DISCHARGE DATE: 02/08/2019 PRINCIPAL DIAGNOSIS: Chest pain in the setting of a history of coronary artery disease. SECONDARY DIAGNOSES: 1. Chronic atrial fibrillation. 2. Rheumatoid arthritis. 3. Hypertension. 4. Hyperlipidemia. 5. Benign prostatic hypertrophy. DISCHARGE MEDICATIONS: Include the following: [place] 5 one every 4 hours as needed, multivitamin 1 p.o. daily, magnesium oxide 40 mg p.o. daily, psyllium 200 mg p.o. once a day, Zetia 10 mg p.o. daily, levothyroxine 100 mcg p.o. daily, gabapentin 300 mg p.o. twice a day, glucosamine/chondroitin 1 p.o. daily, fish oil 1200 mg p.o. daily, Vasculera 630 mg p.o. daily, Orencia 1000 mg IV as directed, hydralazine p.o. 3 times a day, leflunomide 40 mg p.o. daily, folic acid 1 mg p.o. daily, Plaquenil 200 mg p.o. daily, losartan 100 mg p.o. daily, Lasix 20 mg p.o. daily, immunoglobulin as directed, calcium with vitamin D 1 daily, apixaban 5 mg p.o. twice a day, Cardizem CD 240 mg p.o. daily, metoprolol 200 mg p.o. daily. HOSPITAL COURSE: Mr. Aleks Morgan is a 71-year-old male with an extensive history of coronary disease, COPD, hyperlipidemia, hypertension, who presented to the emergency department because of chest pain. Acute DC was ruled out with negative cardiac enzymes. The patient was seen by the Cardiology team. No major recommendation were made. No major intervention needed. The patient remained stable, and was subsequently discharged home on 02/08/2019. The patient is to follow up with his primary care physician, Dr. 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 cc: Ramo Irwin MD
== END 2019-02-08 18:15 | disposition home or self-care (01) | DRG 313 ==
LOC: P.MEDSURG 12:33 → P.ED 12:33 → SUATTDRO 12:34 → 3S 18:08
PROVIDERS: ATTEND Internal Medicine
CPT/HCPCS: 70450; 70496; 70498; 71020; 71046; 71250; 80048; 80053; 82085; 82550; 82553; 82805; 82948; 83880; 84484; 85025; 85027; 85610; 85651; 85730; 86140; 86431; 93005; 93010; 93306; 94010; 94375; 94726; 94729; 94760; 99285; A9270; C8929; Q9957; Q9967; XXXXX